=== PATIENT | male | born 1945 | race Caucasian/White ===

== ENCOUNTER 2019-02-10 16:57 | Inpatient (IN) | payer MEDICARE, OTHER ==
[~2019-02-10] VITALS: Ht 177.8 cm; Wt 98.0 kg
[~2019-02-10 16:57] MED LIST: CARVEDILOL12.5 MG PO; FLEXERIL PO; HYDROCHLOROTHIA25 M1 PO; IBUPROFEN 800800 MG PO; LIPITOR10 MG PO; MOBIC15 MG PO; NORCO 5-325 TA1 EACH PO; PRINIVIL5 MG PO; PROSCAR 5MG TABL5 M1 PO; SYNTHROID112 MC1 PO; ZOFRAN ODT4 MG PO
[2019-02-10 16:58] VITALS: BP 154/103
[2019-02-10] MEDS ORDERED: TRAMADOL 50 MG50 MG PO (17:08)
[2019-02-10 17:35] LABS: ABSOLUTE EOSINOPHILS 0.2 thou/uL (0.0-0.7); ABSOLUTE LYMPHOCYTES 1.6 thou/uL (0.8-5.3); BASOPHILS 0.4 %; EOSINOPHILS 2.4 %; HEMATOCRIT 39.3 % (42.0-52.0); HEMOGLOBIN 13.4 gm/dL (14.0-18.0); LYMPHOCYTES 16.2 %; MCH 32.5 pg (26.0-34.0); MCV 95.6 fL (80.0-100.0); MONOCYTES 10.2 %; MPV 8.3 fl. (7.2-11.1); NUCLEATED RBCS 0 /100WBC; PLATELET COUNT* 221 thou/uL (150-400); POLYS 70.8 %; RBC 4.11 mil/uL (4.50-6.00); RDW-CV 13.1 % (10.5-14.5); WBC 9.9 thou/uL (4.0-11.0)
[2019-02-10 17:40] LABS: INR 1.1; PROTIME 10.9 Seconds (9.20-11.50)
[2019-02-10 17:57] LABS: ALBUMIN 3.7 g/dL (3.4-5.0); CALCIUM 8.6 mg/dL (8.5-10.1); CREATININE 1.2 mg/dL (0.6-1.3); POTASSIUM 4.2 mmol/L (3.5-5.1); TOTAL BILIRUBIN 0.5 mg/dL (<0.1-1.0); TOTAL PROTEIN 6.9 g/dL (6.4-8.2); TROPONIN-I LEVEL 0.33 ng/mL (<0.06)
[2019-02-10 18:53] LABS: URINE BILIRUBIN NEGATIVE (Negative); URINE BLOOD NEGATIVE (Negative); URINE CLARITY CLEAR; URINE COLOR YELLOW; URINE GLUCOSE-RANDOM NEGATIVE (Negative); URINE KETONES TRACE (Negative); URINE LEUKOCYTES-REFLEX NEGATIVE (Negative); URINE NITRITE-REFLEX NEGATIVE (Negative); URINE PROTEIN TRACE (Negative); URINE SPECIFIC GRAVITY 1.025 (1.005-1.030); URINE UROBILINOGEN 0.2 E.U./dl (0.2-1.0)
[2019-02-10 20:25] VITALS: BP 157/113
[2019-02-10 20:45] VITALS: BP 146/92
[2019-02-10 21:53] LABS: AMP/METHAMP Negative (Negative); BARBITURATES Negative (Negative); BENZODIAZEPINES Negative (Negative); COCAINE Negative (Negative); METHADONE Negative (Negative); OPIATES Negative (Negative); PCP Negative (Negative); THC Negative (Negative)
[2019-02-11] VITALS (8 sets, daily range): BP systolic 99–161; BP diastolic 42–97
[2019-02-11 01:12] LABS: ABSOLUTE EOSINOPHILS 0.1 thou/uL (0.0-0.7); ABSOLUTE LYMPHOCYTES 1.2 thou/uL (0.8-5.3); ABSOLUTE MONOCYTES 0.8 thou/uL (0.0-1.2); ABSOLUTE NEUTROPHILS 7.7 thou/uL (1.6-8.1); BASOPHILS 0.2 %; HEMATOCRIT 38.1 % (42.0-52.0); HEMOGLOBIN 13.1 gm/dL (14.0-18.0); LYMPHOCYTES 12.2 %; MCH 32.8 pg (26.0-34.0); MCHC 34.5 g/dL (28.0-37.0); MCV 95.2 fL (80.0-100.0); MONOCYTES 8.1 %; MPV 8.4 fl. (7.2-11.1); NUCLEATED RBCS 0 /100WBC; PLATELET COUNT* 190 thou/uL (150-400); POLYS 78.5 %; RBC 4.01 mil/uL (4.50-6.00); RDW-CV 13.4 % (10.5-14.5); WBC 9.8 thou/uL (4.0-11.0)
[2019-02-11 01:21] LABS: CALCIUM 8.8 mg/dL (8.5-10.1); POTASSIUM 3.6 mmol/L (3.5-5.1)
[2019-02-11 12:19] LABS: ALBUMIN 3.5 g/dL (3.4-5.0); CALCIUM 8.8 mg/dL (8.5-10.1); POTASSIUM 3.5 mmol/L (3.5-5.1); TOTAL BILIRUBIN 0.8 mg/dL (<0.1-1.0); TOTAL PROTEIN 6.7 g/dL (6.4-8.2)
--- NOTE | 2019-02-11 14:16 | EKG ---
[place] [address] ELECTROCARDIOGRAM REPORT Name: DANUTA GRIER Room: [address] ADM IN M.R.#: [id number] Admission: 02/10/19 Attend Phys: Basilio Lopez MD Discharge: Date of : 49 Report #: [id number] THIS REPORT FOR: //name// [facility] ED Test Date: 2019-02-10 Test Time: 17:04:31 Pat Name: DANUTA GRIER Department: Room: [facility] Gender: M Manager Perioperative: : 1945 Requested By: Kiana Chowdary Order Number: [id number] MD: Damion Briseno Measurements Intervals [place] Rate: 77 P: 41 MT: 168 QRS: -44 QRSD: 114 T: 41 QT: 414 QTc: 469 Interpretive Statements Sinus rhythm Multiform ventricular premature complexes Borderline IVCD with LAD Abnormal R-wave progression, late transition No previous ECG available for comparison Electronically Signed On 02-11-2019 14:16:37 CDT by Damion Briseno [email or web address] <ELECTRONICALLY SIGNED> By: Damion Briseno MD, [facility] 02/11/19 1416 1704 1704 Damion Briseno MD, [facility] /EPI
--- NOTE | 2019-02-11 16:38 | 2DMMODE ---
[place] [address] 2 D/M-MODE ECHOCARDIOGRAM Name: DANUTA GRIER Room: [address] IN [facility]#: [id number] Admission: 02/10/19 Attend Phys: Basilio Lopez, Discharge: Date of : 49 Date of Service: 02/11/19 1638 Report #: [id number] THIS REPORT FOR: //name// APPROVED REPORT Study performed: 02/11/2019 15:44:08 EXAM: Comprehensive 2D, Doppler, and color-flow Echocardiogram Patient Location: In-Patient Room #: [facility] Status: routine BSA: 2.25 HR: 61 bpm BP: 99/42 mmHg Rhythm: PVC's Other Information Study Quality: Good Indications CVA/TIA Syncope Elevated Troponin Echo Enhancing Agent Indication: Rule out Shunt Agent(s) / Amount(s) Used: Agitated Saline 10 cc 2D Dimensions IVSd: 13.33 (7-11mm) LVOT Diam: 23.06 (18-24mm) LVDd: 64.34 mm PWd: 11.07 (7-11mm) Ascending Ao: 37.64 (22-36mm) LVDs: 56.19 (25-40mm) Aortic Root: 34.72 mm Volumes Left Atrial Volume (Systole) LA ESV Index: 38.60 mL/m2 Aortic Valve AoV Peak Raghu.: 1.19 m/s AO Peak Gr.: 5.65 mmHg LVOT Max P.86 mmHg AO Mean Gr.: 3.41 mmHg LVOT Mean P.39 mmHg LVOT Max V: 0.85 m/s AO V2 VTI: 20.18 cm LVOT Mean V: 0.55 m/[place] [address] 2 D/M-MODE ECHOCARDIOGRAM Name: DANUTA GRIER Room: [address] IN M.R.#: [id number] Admission: 02/10/19 Attend Phys: Basilio Lopez, Discharge: Date of : 49 Date of Service: 02/11/19 1638 Report #: [id number] TEODORO (VTI): 3.19 cm2 LVOT V1 VTI: 15.40 cm Mitral Valve E/A Ratio: 1.22 MV Decel. Time: 165.76 ms MV E Max Raghu.: 0.62 m/s MV PHT: 48.07 ms MVA (PHT): 4.58 cm2 TDI E/Lateral E': 8.86 Lateral E' Raghu.: 0.07 m/s Pulmonary Valve PV Peak Raghu.: 0.80 m/s PV Peak Gr.: 2.56 mmHg Left Ventricle Left ventricle is mildly dilated. Regional wall motion abnormalities are noted with inferobasilar hypo-akinesis. There is normal left ventricular wall thickness. Left ventricular systolic function is moderately decreased. LVEF is 35-40%. The left ventricular diastolic function is normal. Right Ventricle The right ventricle is normal size. The right ventricular systolic function is normal. Atria Left atrium is mildly dilated. Interatrial septum is intact without evidence of ASD or PFO. The right atrium size is normal. Aortic Valve The aortic valve is normal in structure. No aortic regurgitation is present. There is no aortic valvular stenosis. Mitral Valve The mitral valve is normal in structure. Trace mitral regurgitation. No evidence of mitral valve stenosis. Tricuspid Valve The tricuspid valve is normal in structure. Unable to assess PA pressure. Trace tricuspid regurgitation. Pulmonic Valve The pulmonary valve is normal in structure. [place] [address] 2 D/M-MODE ECHOCARDIOGRAM Name: DANUTA GRIER Room: [address] IN [facility]#: [id number] Admission: 02/10/19 Attend Phys: Basilio Lopez, Discharge: Date of : 49 Date of Service: 02/11/19 1638 Report #: [id number] Great Vessels The aortic root is normal in size. IVC is normal in size and collapses >50% with inspiration. Pericardium There is no pericardial effusion. <Conclusion> Left ventricle is mildly dilated. Left ventricular systolic function is moderately decreased. LVEF is 35-40%. The left ventricular diastolic function is normal. The right ventricle is normal size. Left atrium is mildly dilated. The aortic valve is normal in structure. The mitral valve is normal in structure. Trace mitral regurgitation. The tricuspid valve is normal in structure. IVC is normal in size and collapses >50% with inspiration. There is no pericardial effusion. Regional wall motion abnormalities are noted with inferobasilar hypo-akinesis. Interatrial septum is intact without evidence of ASD or PFO. <ELECTRONICALLY SIGNED> By: Damion Briseno MD, FACC 02/11/19 1638 1638 1638 Damion Briseno MD, FACC /INF
[2019-02-11 23:08] LABS: GLYCOHEMOGLOBIN (HGB A1C) 5.7 % (4.8-5.6)
[2019-02-12] VITALS (9 sets, daily range): BP systolic 104–160; BP diastolic 50–118
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
[2019-02-12 05:25] LABS: CHOLESTEROL 109 mg/dL (<200); HDL CHOLESTEROL 41 mg/dL (>40); LDL CHOLESTEROL 56 mg/dL (<100); TC:HDL 2.7 Ratio (Not establshd); TRIGLYCERIDE 64 mg/dL (<150); VLDL 13 mg/dL (<40)
[2019-02-12 05:26] LABS: SERUM ASSESSMENT Clear
[2019-02-13 00:04] VITALS: BP 114/68
[2019-02-13 04:00] VITALS: BP 133/67
[2019-02-13 08:00] VITALS: BP 126/80
[2019-02-13 12:11] VITALS: BP 109/71
[2019-02-13 16:00] VITALS: BP 138/84
[2019-02-13 19:45] VITALS: BP 135/83
[2019-02-14] VITALS (7 sets, daily range): BP systolic 121–158; BP diastolic 66–96
[2019-02-14 05:07] LABS: ABSOLUTE EOSINOPHILS 0.3 thou/uL (0.0-0.7); ABSOLUTE LYMPHOCYTES 1.3 thou/uL (0.8-5.3); ABSOLUTE MONOCYTES 1.1 thou/uL (0.0-1.2); ABSOLUTE NEUTROPHILS 5.6 thou/uL (1.6-8.1); BASOPHILS 0.2 %; EOSINOPHILS 3.4 %; HEMATOCRIT 37.4 % (42.0-52.0); HEMOGLOBIN 12.7 gm/dL (14.0-18.0); LYMPHOCYTES 15.9 %; MCH 32.3 pg (26.0-34.0); MCV 94.9 fL (80.0-100.0); MONOCYTES 13.1 %; MPV 8.6 fl. (7.2-11.1); NUCLEATED RBCS 0 /100WBC; PLATELET COUNT* 198 thou/uL (150-400); POLYS 67.4 %; RBC 3.94 mil/uL (4.50-6.00); RDW-CV 13.2 % (10.5-14.5); WBC 8.4 thou/uL (4.0-11.0)
[2019-02-14 05:36] LABS: ALBUMIN 3.1 g/dL (3.4-5.0); CALCIUM 8.7 mg/dL (8.5-10.1); CREATININE 0.9 mg/dL (0.6-1.3); POTASSIUM 3.6 mmol/L (3.5-5.1); TOTAL BILIRUBIN 0.7 mg/dL (<0.1-1.0); TOTAL PROTEIN 6.4 g/dL (6.4-8.2)
--- NOTE | 2019-02-14 10:50 | EKG ---
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
[2019-02-15 04:00] VITALS: BP 111/65
[2019-02-15 08:00] VITALS: BP 154/111
[2019-02-15 11:34] VITALS: BP 144/92
[2019-02-15 16:28] VITALS: BP 137/83
[2019-02-15 20:00] VITALS: BP 123/96
[2019-02-16] VITALS (8 sets, daily range): BP systolic 102–142; BP diastolic 70–112
[2019-02-16] MEDS ORDERED: ATORVASTATIN CA40 MG PO (09:53)
[2019-02-16] MEDS ORDERED: MULTAQ400 MG PO (10:02)
[2019-02-17 04:00] VITALS: BP 152/100
[2019-02-17 12:57] VITALS: BP 150/109
--- NOTE | 2019-02-17 13:57 | CARDNUC ---
[place] [address] CARDIAC NUCLEAR IMAGING REPORT Name: DANUTA GRIER Room: [address] IN [facility]#: [id number] Admission: 02/10/19 Attend Phys: Basilio Lopez, Discharge: Date of : 49 Date of Service: 02/17/19 1357 Report #: [id number] THIS REPORT FOR: //name// APPROVED REPORT Imaging Protocol: Rest Tc-99m/Stress Tc-99m 1 day Study performed: 02/16/2019 14:33:00 Indication: Troponin elevation, Fatigue, Syncope, CVA, RVR, AFib. Patient Location: In-Patient Room #: [facility] Stress Tech: Sandra Casper Stress Nurse: Jennyfer Dutton RN Ht: 5 ft 10 in Wt: 216 lbs BSA: 2.16 m2 BMI: 30.98 Medical History Medical History: Arrhythmia, Atrial Fibrillation, Fatigue, HTN, Hyperlipidemia, Obesity , Stroke/TIA, Weakness, Elevated Troponin, RVR, Syncope with fall, Fractured Ribs. Medications: Dronedarone, Atorvastatin, Carvedilol, ASA 81 Mg, Lisinopril, Hydralazine, Lovenox. Allergies: No known drug allergies Cardiac Risk Factors: Age, HTN, Hyperlipidemia, AFib, Elevated Troponin, Syncope, CVA. Previous Cardiac Procedures: None. Pretest Chest Pain Characteristics: No chest pain. Exercise History: Indeterminate Physical Disabilities: Fractured Ribs, CVA. Meds Held (24 hrs): Metoprolol. Resting Data Rest SPECT myocardial perfusion imaging was performed in supine position 30 minutes following the intravenous injection of 10.2 mCi of Tc-99m Sestamibi. Time of rest injection: 09:00 The images were gated to evaluate regional wall motion and calculate left ventricular ejection fraction. Administration Route: IV Administration Site: Right Wrist Pharmacologic Stress Pharmacologic stress test was performed by injecting Regadenoson 0.4 [place] [address] CARDIAC NUCLEAR IMAGING REPORT Name: DANUTA GRIER [place] Room: [address]#: [id number] Admission: 02/10/19 Attend Phys: Basilio Lopez, Discharge: Date of : 49 Date of Service: 02/17/19 1357 Report #: [id number] mg IV push over 10-15 seconds immediately followed by the intravenous injection of 33.3 mCi of Tc-99m Sestamibi. Time of stress injection: 10:45 Administration Route: IV Administration Site: Right Wrist Heart Rate at time of stress injection: 148 bpm. Gated Stress SPECT was performed 40 minutes after stress injection. The images were gated to evaluate regional wall motion and calculate left ventricular ejection fraction. Stress Test Details Stress Test: Pharmacologic stress testing performed using 0.4 mg of regadenoson per 5 mL given IV over 10 seconds. Reason for pharmacologic stress test: Fractured Ribs, Fatigue/Weakness, CVA.. 60 mg caffeine given for nausea. HR Max Heart Rate (APMHR): 149 bpm Resting HR: 123 bpm Target HR (85% APMHR): 126 bpm Max HR Achieved: 148 bpm % of APMHR: 99 Recovery HR: 125 bpm HR response to stress: Normal HR response to stress BP Resting BP: 115/101 mmHg Max BP: 104/47 mmHg Recovery BP: 171/67 mmHg BP response to stress: Normal blood pressure response to stress. ECG Resting ECG: afib Stress ECG: afib ST Change: none Arrhythmia: afib Recovery ECG: afib Recovery ST Change: none Recovery Arrhythmia: afib Clinical Reason for Termination: Completed protocol Stress Symptoms: Lightheaded, Abdominal discomfort, Nausea, Weakness, Fatigue. Exercise duration: 0 min 0 sec Exercise capacity: 1.00 [place] [address] CARDIAC NUCLEAR IMAGING REPORT Name: DANUTA GRIER Room: [address]#: [id number] Admission: 02/10/19 Attend Phys: Basilio Lopez, Discharge: Date of : 49 Date of Service: 02/17/19 1357 Report #: [id number] Nurse Comments 73 year old male inpatient admitted for recent HX of CVA, Syncope with fall, RVR and AFib. Patient tolerated sitting Lexiscan with strong nausea reported/exhibited. Recovery required 60 mg dose of IV push caffeine to help with continued nausea and stomach discomfort, effective. Patient escorted via wheelchair by staff to Nuclear Medicine for images. Patient was stable with no complaints at that time. Stress ECG Conclusion underlying afib with elevated heart rate,negative for ischemia Study Quality Study: Good Artifact: Mild Motion artifact Lung Uptake: Normal Study Data At rest, the left ventricular ejection fraction was 35%.. Post stress, the left ventricular ejection was 20%.. TID = 1.18. Perfusion There is a dilated LV on both stress and rest image sets. There is a focal large sized severe intensity inferolateral defect noted on both stress and rest images without reversiblity. Normal perfusion in other segments. Wall Motion elevated LV chamber dimension. Severe global LV dysfunction Nuclear Conclusion ECG Findings: negative for ischemia afib noted Clinical Findings: negative for ischemia Nuclear Findings: negative for ischemia Exercise Capacity: not assessed Left Ventricular Function: abnormal Risk Study: high risk There is evidence of large inferolateral infarction without significant ischemia. The LV dysfunction present is out of proportion to the size of the infarcted region. Findings compatible with [place] [address] CARDIAC NUCLEAR IMAGING REPORT Name: DANUTA GRIER Room: [address] IN .R.#: [id number] Admission: 02/10/19 Attend Phys: Basilio Lopez, Discharge: Date of : 49 Date of Service: 02/17/19 1357 Report #: [id number] <Conclusion> underlying afib with elevated heart rate,negative for ischemia <ELECTRONICALLY SIGNED> By: Delbert Bryant MD, FACC 02/17/19 1357 56 135 Delbert Bryant MD, FACC /INF
[2019-02-17 16:06] VITALS: BP 170/83
[2019-02-17] MEDS ORDERED: ELIQUIS5 MG PO (16:26)
== END 2019-02-17 18:46 | DRG 64 ==
LOC: M.ERS 16:57 → M.TBA-ER 18:32 → M.2W 18:32
PROVIDERS: Personal Emergency Response Attendant; ADMIT Internal Medicine
DX: I63.40 Cerebral infarction due to embolism of unspecified cerebral artery (principal); G93.41 Metabolic encephalopathy; I50.22 Chronic systolic (congestive) heart failure; E86.0 Dehydration; G89.29 Other chronic pain; I48.0 Paroxysmal atrial fibrillation; I11.0 Hypertensive heart disease with heart failure; W18.39XA Other fall on same level, initial encounter; Y93.89 Activity, other specified; Y92.89 Other specified places as the place of occurrence of the external cause; Y99.8 Other external cause status; Z87.820 Personal history of traumatic brain injury; Z79.899 Other long term (current) drug therapy

== ENCOUNTER 2019-02-17 17:15 | Inpatient (IN) | payer MEDICARE, OTHER ==
[~2019-02-17] VITALS: Ht 177.8 cm; Wt 103.2 kg
[~2019-02-17 17:15] MED LIST changes: +ATORVASTATIN CA40 MG PO; +ELIQUIS5 MG PO; +MULTAQ400 MG PO; +TRAMADOL 50 MG50 MG PO
[2019-02-17 19:50] VITALS: BP 127/82
--- NOTE | 2019-02-17 23:14 | NUR ---
ARRIVED ON DAY SHIFT AT 1855 FROM TELEMETRY UNIT. WAS HERE FOR A SHORT TIME THEN SON, [id number] AND GRANDKIDS STAYED AWHILE. REHAB ADMISSION TOOL COMPLETED. PATIENT LAUGHS INAPPROPRIATELY AT TIMES AT QUESTIONS. HAS DIFFICULTY FOLLOWING DEMANDS AT TIMES. HAS A HISTORY OF TRAUMATIC BRAIN INJURY FROM 3 YEARS AGO. HAS FREQUENT URINATION OF CLEAR/YELLOW URINE. HAS VOIDED ABOUT 9 TIMES SINCE ARRIVAL. HAS A SKIN TEAR ON LEFT HAND COVERED WITH KERLIX. HAS SCABS ON LEFT KNEE AND LEFT LOWER LEG. SLEEPS AT SHORT INTERVALS THEN WAKES UP MOANING. GAVE TRAMADOL FOR PAIN IN THE RIBS. COMPLAINED OF SHORTNESS OF BREATH. 02 SAT WAS 99%. SAT UP ON SIDE OF THE BED FOR AWHILE AND CALMED DOWN ENOUGH TO GO BACK TO SLEEP FOR A SHORT INTERVAL.
[2019-02-17 23:40] VITALS: BP 148/94
[2019-02-18 03:56] LABS: HEMATOCRIT 40.3 % (42.0-52.0); HEMOGLOBIN 13.8 gm/dL (14.0-18.0); MCH 32.2 pg (26.0-34.0); MCHC 34.3 g/dL (28.0-37.0); MCV 93.9 fL (80.0-100.0); MPV 7.9 fl. (7.2-11.1); RBC 4.29 mil/uL (4.50-6.00); RDW-CV 13.6 % (10.5-14.5); WBC 8.9 thou/uL (4.0-11.0)
[2019-02-18 04:10] LABS: CREATININE 0.9 mg/dL (0.6-1.3); POTASSIUM 3.6 mmol/L (3.5-5.1)
--- NOTE | 2019-02-18 05:38 | NUR ---
POOR RELIEF FROM LEFT RIB PAIN WITH TRAMADOL. BETTER RELIEF WHEN VICODIN GIVEN. RESTLESS AND MOANING, COMPLAINT OF MID STERNAL CHEST TIGHTNESS, THRASHING ABOUT IN BED DECREASED SOME AFTER FIRST VICODIN GIVEN AND MORE AFTER 2ND VICODIN GIVEN. HAS RESTED QUIETLY NOW FOR ABOUT A HOUR. PLACED 02 AT 2 LITER NASAL CANNULA AT ABOUT 2330. PATIENT COMPLAINED OF SHORTNESS OF BREATH. 02 SAT WAS 92% ON ROOM AIR. INCREASED TO 95% AFTER PLACING OXYGEN. PATIENT STATED THE OXYGEN PROVIDED SOME RELIEF BUT KEPT TAKING THE OXYGEN OFF. PATIENT STATES HE DIDN'T REALIZE THE CANNULA WAS OFF, THAT IT MUST HAVE FALLEN OFF. HOURLY ROUNDING IN PROGRESS.
[2019-02-18 08:30] VITALS: BP 121/93
--- NOTE | 2019-02-18 13:32 | NUR ---
Nutrition: Consult for new rehab pt. Wt: 237#. Eating regular diet. Albumin 3.1. RX, Hx, labs noted. Low nutrition risk. Will follow weekly.
--- NOTE | 2019-02-18 14:36 | EKG ---
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1945 Requested By: Nash Soto Order Number: [id number] Reading MD: Damion Briseno Measurements Intervals [place] Rate: 113 P: MS: QRS: 205 QRSD: 90 T: QT: 379 QTc: 520 Interpretive Statements Atrial fibrillation Paired ventricular premature complexes Right axis deviation Low voltage, extremity leads Abnormal R-wave progression, early transition Borderline repolarization abnormality Compared to ECG 02/14/2019 10:22:08 Right-axis deviation now present Low QRS voltage now present Sinus rhythm no longer present Left-axis deviation no longer present Electronically Signed On 02-18-2019 14:36:31 CDT by Damion Briseno [email or web address] <ELECTRONICALLY SIGNED> By: Damion Briseno MD, [facility] 02/18/19 1436 0023 0023 Damion Briseno MD, FAC /EPI
--- NOTE | 2019-02-18 15:56 | NUR ---
SW met with pt to complete initial assessment, introduce self, and SW role on inpt rehab unit. Pt and a couple of pt relatives visiting with pt. Pt alert, oriented. Pt lives at home with his . Pt plans to retire soon. Pt was independent prior to admission. No DME or hx of HH or SNF. Pt has hx of TBI and some cognitive issues; pt even more concerned with pt cognition and possible depression according to team. Team conference held today. SW reviewed team conference summary and plan for pt to remain on rehab unit to continue therapies and team to reassess pt length of stay during team conference next Sunday 02/25. SW to continue to follow to assist with safe dc planning.
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
[2019-02-18 20:35] VITALS: BP 130/76
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
[2019-02-19 06:00] VITALS: BP 144/98
[2019-02-19 08:00] VITALS: BP 148/78
--- NOTE | 2019-02-19 09:53 | NUR ---
AM ASSESSMENT AND VITAL SIGNS COMPLETED DOCUMENTED. PT HAS BEEN FORGETFUL AND IMPULSIVE THIS AM, REQUIRES ALMOST CONTINUOUS SUPERVISION FOR SAFETY AND REDIRECTION. PT C/O BEING EXHAUSTED AND HAS REQUIRED A LOT OF ENCOURAGEMENT TO FEED HIMSELF. PT STATES THE DR TOLD HIM HE COULD GO HOME TODAY OVER AND OVER. FALL PRECAUTIONS AND FREQUENT ROUNDING CONTINUE.
--- NOTE | 2019-02-19 18:13 | NUR ---
PT CONTINUED TO BE SLEEPY AND HAD A LOT OF DIFFICULTY PARTICIPATING IN THERAPY. PT's AND FAMILY WERE HERE TO VISIT THIS EVENING AND THEY WERE EDUCATED ON EXPECTATIONS WHILE HE IS HERE AND THEY WERE ENCOURAGED TO MAKE HIM DO THINGS FOR HIMSELF. PT WILL BE GIVEN BENADRYL AND MELATONIN TONIGHT IN HOPES OF GETTING HIM BACK ON A REGULAR SCHEDULE. NO ACUTE DISTRESS AT THIS TIME.
[2019-02-19 20:46] VITALS: BP 119/79
--- NOTE | 2019-02-20 03:06 | NUR ---
ASSUMED CARE @ 193=-02/19-.APPEARS SLEEPING ON HIS LEFT SIDE W/ HOB UP.BED ALARM PUT ON @ 1931.PRN MELATONIN 10 MG ORAL GIVEN @ 2143.AT 0000-02/2066-[id number] URINE ON FLOOR.NOTED SLEEP APNEA X 25 SECONDS @ 0030. 02 PUT ON @ 0045.O2 SAT-94 %.CALLS FOR KEISHA 3X.INFORMED PATIENT THAT KEISHA WENT HOME.RESTLESS.PRN BENDRYL 25 MG ONE CAP ORAL GIVEN @ 0119. SLEEPING SOUNDLY @ 0210.ON HOURLY ROUNDS.TUTRNS SELF @ NIGHT.
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
--- NOTE | 2019-02-20 07:07 | NUR ---
STILL SLEEPING SOUNDLY @ 0707 SINCE 0210.DID NOT EVEN WAKE UP WHILE COMPLETE BED CHANGE DONE @ 0630.SLEEP APNEA NOTED ONLY WITH RESTLESS SLEEP.NO SLEEP APNEA NOTED WHILE SLEEPING SOUNDLY.
[2019-02-20 08:00] VITALS: BP 96/62
--- NOTE | 2019-02-20 11:07 | NUR ---
PT CARE ASSUMED THIS AM, ASSESSMENT AND VITAL SIGNS COMPLETED DOCUMENTED. INITIALLY PT WAS IN A SOUND SLEEP AND WOULDN'T WORK WITH THERAPY. ONCE PT GOT UP THIS AM HE HAS BEEN RESTLESS AND IMPULSIVE, C/O HEADACHE. PRN TYLENOL GIVEN AND ICE BAG PLACED TO HIS FOREHEAD. FALL PRECAUTIONS AND HOURLY ROUNDING CONTINUE.
--- NOTE | 2019-02-20 12:30 | NUR ---
PT HAS CONTINUED TO BE RESTLESS AND HEADACHE HAS NOT RESOLVED. CALLS PLACED TO DR MERCADO AND DR RICKETTS. ORDERS REC'D FOR A CT SCAN AND FOR IBUPROFEN. PT IS CURRENTLY IN BED, LYING ON HIS SIDE, QUIET AT THIS TIME. FALL PRECAUTIONS AND HOURLY ROUNDING IN PLACE.
--- NOTE | 2019-02-20 16:01 | NUR ---
PT TRANSPORTED TO MRI VIA GURNEY.
--- NOTE | 2019-02-20 17:56 | NUR ---
PT RETURNED FROM MRI AT 1645, TRANSFERED BACK TO HIS BED AND SETTLED IN. PAIN MEDICATIONS REPEATED AT 1720 AND PT IS NOW RESTING QUIETLY. DR BERGMAN SPOKE WITH PT's AND PT WILL REMAIN ON REHAB FOR NOW.
[2019-02-20 19:50] VITALS: BP 104/69
--- NOTE | 2019-02-20 19:50 | NUR ---
AWAKENED FOR VITAL SIGNS AND HS REASSESSMENT. PATIENT IRRITABLE AFTER AWAKENED BUT DID COOPERATE AND LET VITAL SIGNS BE TAKEN AND TOOK MEDICATIONS WITHOUT DIFFICULTY. DOES SPILL WATER DOWN HIS CHIN WHEN HE DRINKS. DECLINED OFFER OF A SNACK. DENIED NEED FOR PAIN MEDICATION.
--- NOTE | 2019-02-21 06:02 | NUR ---
GIVEN SCHEDULED PAIN MEDICINE. HAS THE BEST RELIEF FROM HEADACHE RATED "10" WITH VICODIN. INCONTINENT X 3 DURING THE NIGHT REQUIRING PARTIAL BED CHANGES. CALLS FOR URINAL AT TIMES BUT WHEN ASSISTED WITH THE URINAL IS UNABLE TO VOID. HOURLY ROUNDING IN PROGRESS.
[2019-02-21 08:48] VITALS: BP 104/69
--- NOTE | 2019-02-21 13:37 | NUR ---
PATIENT SEEN BY DR RICKETTS THIS AM. DR MERCADO CAME UP AND STATED TO PATIENT MRI WAS STABLE. ORDER TO SEND TO ACUTE CARE RECEIVED. WHEN TOLD OF PATIENT, SHE ASKED THAT PATIENT BE TRANSFERRED TO [facility]. TRANSFER WAS SET UP. GAVE REPORT TO ER NURSE. NOTIFIED [employer] AND AMBULANCE. PATIENT HAS SOME NAUSEA AND VOMITING. A ATROPINE PATCH ORDERED AND WAS PLACED. IBUPROPHEN FOR HEADACHE. VSS. NO SKIN BREAKDOWN, TRANSFER VIA AMBULANCE WITHOUT DIFFICULTIES. WAS HERE AND FOLLOWED BEHIND.
== END 2019-02-21 13:46 | disposition short-term general hospital (02) | DRG 123 ==
LOC: M.REH 17:15
PROVIDERS: ADMIT Physical Medicine & Rehabilitation
DX: H53.47 Heteronymous bilateral field defects (principal); I63.9 Cerebral infarction, unspecified; I50.22 Chronic systolic (congestive) heart failure; I48.0 Paroxysmal atrial fibrillation; I11.0 Hypertensive heart disease with heart failure; R51 Headache; F98.8 Other specified behavioral and emotional disorders with onset usually occurring in childhood and adolescence; G89.29 Other chronic pain; R07.81 Pleurodynia; R45.1 Restlessness and agitation; Z79.899 Other long term (current) drug therapy; Z79.82 Long term (current) use of aspirin; Z87.820 Personal history of traumatic brain injury